=== PATIENT | female | born 1985 | race Caucasian/White ===

== ENCOUNTER → 2017-07-09 | Outpatient (REF) | payer OTHER | LOC: M SFHCWAGY 11:16 | PROVIDERS: ATTEND Nurse Practitioner Family | DX: Z12.4 Encounter for screening for malignant neoplasm of cervix (principal) ==

== ENCOUNTER → 2018-07-11 | Outpatient (REF) | payer OTHER ==
[2018-07-13 14:15] LABS: HPV HYBRID CAPTURE II Negative (Negative)
== END ==
LOC: M SFHCWAGY 10:09
DX: Z12.4 Encounter for screening for malignant neoplasm of cervix (principal)

== ENCOUNTER → 2018-11-09 | Outpatient (CLI) | payer OTHER | LOC: M RAD 13:18 | DX: N64.4 Mastodynia (principal); N61.0 Mastitis without abscess | CPT/HCPCS: 77066 ==

== ENCOUNTER 2020-01-18 14:19 | Emergency (ER) | payer OTHER ==
[~2020-01-18] VITALS: Ht 157.5 cm; Wt 55.6 kg
[2020-01-18] MEDS ORDERED: LEVOTAB18 (14:29)
[2020-01-18] MEDS ORDERED: CEPH500C (14:29)
[2020-01-18 16:51] LABS: BASO % 0.3 % (0.0-1.0); EOS % 0.2 % (0.0-3.0); HEMATOCRIT 42.4 % (36.0-47.0); HEMOGLOBIN 14.3 g/dl (12.0-15.5); LYMPH # 1.6 10^3/uL (1.5-5.0); MEAN CORPUSCULAR HEMOGLOBIN 31.6 pg (27.0-33.0); MEAN CORPUSCULAR HGB CONC 33.7 g/dl (32.0-36.5); MEAN CORPUSCULAR VOLUME 93.6 fl (80.0-96.0); MONO # 0.6 10^3/uL (0.0-0.8); MONO % 4.5 % (0.0-5.0); NEUTROPHILS # 10.8 10^3/uL (1.5-8.5); NEUTROPHILS % 82.7 % (36.0-66.0); PLATELET COUNT, AUTOMATED 228 10^3/uL (150-450); RED BLOOD COUNT 4.53 10^6/uL (4.00-5.40); WHITE BLOOD COUNT 13.1 10^3/uL (4.0-10.0)
[2020-01-18] MEDS: KETOROLAC 60 MG/2 ML VIAL (J1885) IM ONE (16:55)
[2020-01-18 17:19] LABS: ERYTHROCYTE SEDIMENTATION RATE 8 mm/hr (0-20)
[2020-01-18 17:21] LABS: BLOOD UREA NITROGEN 7 MG/DL (7-18); C REACTIVE PROTEIN QUANTITATIV 0.89 MG/DL (0.00-0.30); CARBON DIOXIDE LEVEL 24 MEQ/L (21-32); CHLORIDE LEVEL 112 MEQ/L (98-107); CREATININE FOR GFR 0.76 MG/DL (0.55-1.30); GLOMERULAR FILTRATION RATE > 60.0 (>60); GLUCOSE, FASTING 88 MG/DL (70-100); POTASSIUM SERUM 4.1 MEQ/L (3.5-5.1); SODIUM LEVEL 141 MEQ/L (136-145)
--- NOTE | 2020-01-18 18:01 | REPVR ---
PROCEDURE INFORMATION: Exam: US Left Breast Limited Exam date and time: 01/18/2020 5:30 PM Age: 34 years old Clinical indication: Mass, lump, or swelling; Left; Additional info: Red, swollen, tender area TECHNIQUE: Imaging protocol: Limited ultrasound of Left breast with image documentation, including axilla when performed. Exam focused on the search and evaluation for mass. COMPARISON: US BREAST U/S UNILATERAL LIMITED LEFT 11/09/2018 2:22 PM FINDINGS: Breast: Imaging in the area of erythema beneath the areola demonstrates the presence of a complex predominantly fluid filled mass with internal membranes measuring 2.7 x 3.5 x 1 cm. The lesion is hypervascular and its perimeter. Findings consistent with a retroareolar abscess. IMPRESSION: Findings most compatible with a retroareolar abscess although more aggressive pathology is not absolutely excluded. As such percutaneous aspiration for confirmation and treatment is suggested. Follow-up breast ultrasound/mammography also suggested as clinically directed. ASSESSMENT: BI-RADS 0. Electronically signed by: Patrick Davis On 01/18/2020 18:00:52 PM
[2020-01-18] MEDS: LIDOCAINE 1% MDV 20ML VIAL SC ONE (19:23)
[2020-01-18 19:49] VITALS: BP 138/81
--- NOTE | 2020-01-19 17:38 | CR ---
DATE OF CONSULTATION: 01/18/2020 REASON FOR CONSULTATION: Left breast abscess. HISTORY: The patient is a 34-year-old woman who presented to the emergency department complaining of a roughly 4-day history of left breast discomfort and swelling with evidence for a breast abscess. The patient had been seen at the [facility] several days ago and was started on antibiotics with Keflex. She has noticed increase in size of the swelling and increased tenderness without any drainage. She reports that she has had an abscess in this area three times before. Apparently, this has responded to antibiotics in the past. She had undergone an ultrasound in the emergency department, which confirmed an abscess, and I am now consulted. MEDICATIONS: Patient is not on any routine prescription medications and has been using Aleve for discomfort. She was started on the Keflex 500 mg four times daily and is taking control pills. ALLERGIES: AMOXICILLIN, which apparently caused diarrhea and stomach pains. MEDICAL HISTORY: Significant for supraventricular tachycardia as a teen. She is a smoker. Only surgical history has been lymph node removal from the right jaw line. FAMILY HISTORY: Noncontributory to her current problem. REVIEW OF SYSTEMS: Shows that she has had a fever. She has not had any other upper respiratory infection (URI) or urinary tract infection (UTI) symptoms. PHYSICAL EXAMINATION: Shows a thin woman who appears somewhat anxious. The left breast shows a large, raised, fluctuant area along the medial aspect of the edge of the areola. The fluctuant area and appears to be quite superficial and perhaps 3-3.5 cm in maximal diameter. The area is reddened and quite tender. IMPRESSION: Left breast abscess, not responding to oral antibiotics. PLAN: The patient was counseled for incision and drainage of the abscess. We will obtain a culture so that we can assess for methicillin-resistant Staphylococcus aureus (MRSA). I would not change her antibiotics at this time and think that once the abscess is drained that the Keflex is likely to be adequate antibiotic therapy. She was counseled regarding care of her wound after the incision and drainage. She apparently has an appointment at the [facility] again tomorrow, and I advised her that she can followup with them.
--- NOTE | 2020-01-19 18:51 | RO ---
DATE OF PROCEDURE: 01/18/2020 PREPROCEDURE DIAGNOSIS: Left breast abscess. POSTOPERATIVE DIAGNOSIS Left breast abscess. PROCEDURE PERFORMED: Incision and drainage of left breast abscess. SURGEON; Dr. Shady Hudson [employer]: ANESTHESIA: Local of 1% Xylocaine. INDICATIONS FOR PROCEDURE: The patient is a 34-year-old woman who presented to the emergency department with a 4-day history of a developing abscess in the medial breast around the edge of the areola. She is now for incision and drainage of this abscess. DESCRIPTION OF PROCEDURE: The area was prepped with Betadine and draped with gauze pads. Local anesthesia was achieved with 1% lidocaine along the edge of the areola overlying the fluctuant abscess. An 11 blade was used to make an approximately 1 cm incision. A large amount of thick yellow-green pus was released, and the drainage was encouraged by gentle pressure. A Culturette was obtained for Gram stain and cultures. The wound was wicked with a 2 x 2 moistened with some Betadine and a bulky bandage was applied. The patient tolerated the procedure well.
== END 2020-01-18 20:02 | disposition home or self-care (01) ==
LOC: M ED 14:19
DX: N61.1 Abscess of the breast and nipple (principal); F17.200 Nicotine dependence, unspecified, uncomplicated; Z88.0 Allergy status to penicillin; Z79.2 Long term (current) use of antibiotics; Z79.3 Long term (current) use of hormonal contraceptives
CPT/HCPCS: 10060; 36415; 76642; 80048; 84702; 85025; 85652; 86140; 87070; 87205; 96372; 99283; J1885

== ENCOUNTER → 2020-08-17 | Outpatient (CLI) | payer OTHER ==
[~2020-08-17] MED LIST: CEPH500C; LEVOTAB18
[2020-08-17 13:52] LABS: BASO % 0.3 % (0.0-1.0); EOS # 0.1 10^3/uL (0.0-0.5); EOS % 1.4 % (0.0-3.0); HEMATOCRIT 46.8 % (36.0-47.0); HEMOGLOBIN 14.9 g/dl (12.0-15.5); LYMPH # 1.8 10^3/uL (1.5-5.0); LYMPH % 20.6 % (24.0-44.0); MEAN CORPUSCULAR HGB CONC 31.8 g/dl (32.0-36.5); MEAN CORPUSCULAR VOLUME 97.5 fl (80.0-96.0); MONO # 0.6 10^3/uL (0.0-0.8); MONO % 6.3 % (0.0-5.0); NEUTROPHILS # 6.2 10^3/uL (1.5-8.5); NEUTROPHILS % 71.1 % (36.0-66.0); PLATELET COUNT, AUTOMATED 253 10^3/uL (150-450); WHITE BLOOD COUNT 8.7 10^3/uL (4.0-10.0)
[2020-08-17 14:01] LABS: ALBUMIN 4.1 GM/DL (3.2-5.2); ALT/SGPT 22 U/L (12-78); BILIRUBIN,TOTAL 0.7 MG/DL (0.2-1.0); BLOOD UREA NITROGEN 15 MG/DL (7-18); CALCIUM LEVEL 8.9 MG/DL (8.5-10.1); CARBON DIOXIDE LEVEL 24 MEQ/L (21-32); CHLORIDE LEVEL 109 MEQ/L (98-107); CHOLESTEROL LEVEL 206 MG/DL (<200); CHOLESTEROL RISK RATIO 5.722 (<5); CREATININE FOR GFR 0.84 MG/DL (0.55-1.30); GLOMERULAR FILTRATION RATE > 60.0 (>60); GLUCOSE, FASTING 93 MG/DL (70-100); HDL CHOLESTEROL 36 MG/DL (>40); LDL CHOLESTEROL 152 MG/DL (<100); NON-HDL-C 170 MG/DL; POTASSIUM SERUM 4.3 MEQ/L (3.5-5.1); RHEUMATOID FACTOR QUANT < 10.0 IU/ML (<15.0); SODIUM LEVEL 138 MEQ/L (136-145); THYROID STIMULATING HORMONE 0.648 uIU/ML (0.358-3.740); TOTAL PROTEIN 7.3 GM/DL (6.4-8.2); TRIGLYCERIDES LEVEL 90 MG/DL (<150)
[2020-08-17 15:09] LABS: HEMOGLOBIN A1c 5.4 %
[2020-08-20 10:20] LABS: DRVV SCREEN 36.5 SEC
[2020-08-20 10:37] LABS: PTT LUPUS TYPE ANTICOAG SCREEN 0.9 (0-1.2)
[2020-08-20 15:07] LABS: ANTINUCLEAR ANTIBODIES DIRECT Negative (Negative)
--- NOTE | 2020-08-29 11:43 | REP ---
BILATERAL HAND SERIES: 8-VIEWS HISTORY: Hand pain. FINDINGS: Four views of the right and four views of the left hand are presented. Overall mineralization pattern is normal. There is mild osteoarthritic spurring at the DIP joint of the index finger on the right. Bones, joints, and soft tissues are otherwise unremarkable. IMPRESSION: Minimal degenerative change at the right index distal interphalangeal (DIP). Otherwise, negative right hand and left hand radiographs. MTDD
== END ==
LOC: M WUC 08:06
PROVIDERS: ATTEND Physician Assistant Medical
DX: Z00.00 Encounter for general adult medical examination without abnormal findings (principal); L40.0 Psoriasis vulgaris; R60.9 Edema, unspecified; Z79.899 Other long term (current) drug therapy; Z82.61 Family history of arthritis; Z83.49 Family history of other endocrine, nutritional and metabolic diseases; Z83.3 Family history of diabetes mellitus; M79.642 Pain in left hand; M79.641 Pain in right hand

== ENCOUNTER → 2021-09-22 | Outpatient (REF) | payer OTHER | LOC: M SFHCWAGY 19:28 | PROVIDERS: ATTEND Advanced Practice Midwife | DX: Z12.4 Encounter for screening for malignant neoplasm of cervix (principal) ==

== ENCOUNTER → 2021-12-25 | Outpatient (CLI) | payer OTHER ==
[2021-12-25 10:23] LABS: BASO % 0.4 % (0.0-1.0); EOS # 0.1 10^3/uL (0.0-0.5); EOS % 1.6 % (0.0-3.0); HEMOGLOBIN 14.7 g/dl (12.0-15.5); LYMPH # 1.9 10^3/uL (1.5-5.0); LYMPH % 24.3 % (24.0-44.0); MEAN CORPUSCULAR HEMOGLOBIN 30.8 pg (27.0-33.0); MEAN CORPUSCULAR HGB CONC 32.7 g/dl (32.0-36.5); MEAN CORPUSCULAR VOLUME 94.3 fl (80.0-96.0); MONO # 0.5 10^3/uL (0.0-0.8); MONO % 6.3 % (2.0-8.0); NEUTROPHILS # 5.3 10^3/uL (1.5-8.5); NEUTROPHILS % 66.9 % (36.0-66.0); PLATELET COUNT, AUTOMATED 330 10^3/uL (150-450); RED BLOOD COUNT 4.77 10^6/uL (4.00-5.40); WHITE BLOOD COUNT 7.9 10^3/uL (4.0-10.0)
[2021-12-25 11:06] LABS: ALBUMIN 4.1 GM/DL (3.2-5.2); ALT/SGPT 20 U/L (12-78); BILIRUBIN,TOTAL 0.7 MG/DL (0.2-1.0); BLOOD UREA NITROGEN 10 MG/DL (7-18); CALCIUM LEVEL 9.1 MG/DL (8.5-10.1); CARBON DIOXIDE LEVEL 29 MEQ/L (21-32); CHLORIDE LEVEL 106 MEQ/L (98-107); CHOLESTEROL LEVEL 201 MG/DL (<200); CHOLESTEROL RISK RATIO 5.432 (<5); CREATININE FOR GFR 0.78 MG/DL (0.55-1.30); GLOMERULAR FILTRATION RATE > 60.0 (>60); GLUCOSE, FASTING 97 MG/DL (70-100); HDL CHOLESTEROL 37 MG/DL (>40); LDL CHOLESTEROL 146 MG/DL (<100); NON-HDL-C 164 MG/DL; SODIUM LEVEL 137 MEQ/L (136-145); TOTAL PROTEIN 7.5 GM/DL (6.4-8.2); TRIGLYCERIDES LEVEL 91 MG/DL (<150)
[2021-12-25 11:11] LABS: HEMOGLOBIN A1c 5.4 %
== END ==
LOC: M WUC 08:01
PROVIDERS: ATTEND Nurse Practitioner Family
DX: E78.00 Pure hypercholesterolemia, unspecified (principal); Z79.1 Long term (current) use of non-steroidal anti-inflammatories (NSAID); Z79.899 Other long term (current) drug therapy; Z83.49 Family history of other endocrine, nutritional and metabolic diseases

== ENCOUNTER → 2022-04-23 | Outpatient (CLI) | payer OTHER | LOC: M PLAIMG 12:06 | PROVIDERS: ATTEND Nurse Practitioner Family | DX: M51.26 Other intervertebral disc displacement, lumbar region (principal) ==

== ENCOUNTER → 2022-12-15 | Outpatient (CLI) | payer OTHER ==
[2022-12-15 10:20] LABS: RHEUMATOID FACTOR QUANT < 3.5 IU/ML (<14)
[2022-12-16 21:07] LABS: ANA (HEP2) Negative (.); CYCLIC CITRULLINATED PEPTIDE < 1 units (0-19)
== END ==
LOC: M WUC 08:03
PROVIDERS: ATTEND Nurse Practitioner Family
DX: M25.50 Pain in unspecified joint (principal)

== ENCOUNTER → 2023-06-07 | Outpatient (CLI) | payer OTHER ==
[2023-06-07 11:28] LABS: BASO # 0.1 10^3/uL (0.0-0.2); BASO % 0.6 % (0.0-1.0); EOS % 0.3 % (0.0-3.0); HEMATOCRIT 47.2 % (36.0-47.0); HEMOGLOBIN 15.8 g/dl (12.0-15.5); LYMPH # 1.3 10^3/uL (1.5-5.0); LYMPH % 14.7 % (24.0-44.0); MEAN CORPUSCULAR HEMOGLOBIN 31.7 pg (27.0-33.0); MEAN CORPUSCULAR HGB CONC 33.5 g/dl (32.0-36.5); MEAN CORPUSCULAR VOLUME 94.6 fl (80.0-96.0); MONO # 0.5 10^3/uL (0.0-0.8); MONO % 5.1 % (2.0-8.0); NEUTROPHILS # 6.9 10^3/uL (1.5-8.5); PLATELET COUNT, AUTOMATED 204 10^3/uL (150-450); RED BLOOD COUNT 4.99 10^6/uL (4.00-5.40); WHITE BLOOD COUNT 8.8 10^3/uL (4.0-10.0)
[2023-06-07 11:29] LABS: ALKALINE PHOSPHATASE 54 U/L (46-116); ALT/SGPT < 9 U/L (7.0-40); AST/SGOT < 8 U/L (<34); BILIRUBIN,TOTAL 0.8 MG/DL (0.3-1.2); BLOOD UREA NITROGEN 8 MG/DL (9-23); CALCIUM LEVEL 8.9 MG/DL (8.5-10.1); CARBON DIOXIDE LEVEL 25 MMOL/L (20-31); CHLORIDE LEVEL 109 MMOL/L (98-107); CHOLESTEROL LEVEL 190 MG/DL (<200); CHOLESTEROL RISK RATIO 4.96 (<5); CREATININE FOR GFR 0.83 MG/DL (0.55-1.30); GLOMERULAR FILTRATION RATE > 60.0 (>60); GLUCOSE, FASTING 99 MG/DL (60-100); HDL CHOLESTEROL 38.3 MG/DL (>40); LDL CHOLESTEROL 134.9 MG/DL (<100); NON-HDL-C 151.7 MG/DL; POTASSIUM SERUM 4.3 MMOL/L (3.5-5.1); SODIUM LEVEL 142 MMOL/L (136-145); TOTAL PROTEIN 6.8 G/DL (5.7-8.2); TRIGLYCERIDES LEVEL 84 MG/DL (<150)
[2023-06-07 11:30] LABS: THYROID STIMULATING HORMONE 0.467 uIU/ML (0.55-4.78); TOTAL 25(OH) VITAMIN D 34.2 NG/ML (20.0-100.0)
[2023-06-07 11:43] LABS: HEMOGLOBIN A1c 5.2 % (4.0-6.0)
== END ==
LOC: M WUC 08:09
PROVIDERS: ATTEND Nurse Practitioner Family
DX: Z00.00 Encounter for general adult medical examination without abnormal findings (principal); E78.00 Pure hypercholesterolemia, unspecified; M54.50 Low back pain, unspecified

== ENCOUNTER → 2023-09-23 | Outpatient (REF) | payer OTHER | LOC: M SFHCDERM 17:42 | PROVIDERS: ATTEND Nurse Practitioner Family | DX: L82.1 Other seborrheic keratosis (principal) ==

== ENCOUNTER → 2023-12-20 | Outpatient (REF) | payer OTHER ==
[2023-12-20 17:44] LABS: ALBUMIN 4.1 G/DL (3.2-5.2); ALKALINE PHOSPHATASE 63 U/L (46-116); ALT/SGPT 13 U/L (7.0-40); AST/SGOT 10 U/L (<34); BILIRUBIN,TOTAL 0.6 MG/DL (0.3-1.2); BLOOD UREA NITROGEN 6 MG/DL (9-23); CALCIUM LEVEL 9.3 MG/DL (8.5-10.1); CARBON DIOXIDE LEVEL 27 MMOL/L (20-31); CHLORIDE LEVEL 107 MMOL/L (98-107); CREATININE FOR GFR 0.69 MG/DL (0.55-1.30); GLOMERULAR FILTRATION RATE > 60.0 (>60); GLUCOSE, FASTING 103 MG/DL (60-100); POTASSIUM SERUM 3.8 MMOL/L (3.5-5.1); SODIUM LEVEL 138 MMOL/L (136-145); TOTAL PROTEIN 7.4 G/DL (5.7-8.2)
[2023-12-20 17:46] LABS: FREE THYROXINE INDEX 4.6 % (1.3-4.8); THYROID STIMULATING HORMONE 2.252 uIU/ML (0.55-4.78); THYROXINE (T4) 12.3 UG/DL (4.5-10.9)
[2023-12-20 17:47] LABS: THYROID PEROXIDASE ANTIBODY 44 U/ML (<60.0)
== END ==
LOC: M LABDRWAD 16:19 → M LABWUC 16:19
PROVIDERS: ATTEND Registered Nurse
DX: R63.4 Abnormal weight loss (principal); E07.89 Other specified disorders of thyroid

== ENCOUNTER → 2024-06-26 | Outpatient (CLI) | payer OTHER | LOC: M WUC 08:23 | PROVIDERS: ATTEND Registered Nurse | DX: M25.561 Pain in right knee (principal) ==

== ENCOUNTER → 2024-07-10 | Outpatient (REF) | payer OTHER | LOC: M SFHCWAGY 18:00 | PROVIDERS: ATTEND Advanced Practice Midwife | DX: Z12.4 Encounter for screening for malignant neoplasm of cervix (principal) ==

== ENCOUNTER → 2025-01-22 | Outpatient (CLI) | payer OTHER | LOC: M WUC 08:14 | PROVIDERS: ATTEND Registered Nurse | DX: R53.83 Other fatigue (principal); R76.0 Raised antibody titer ==

== ENCOUNTER → 2025-03-19 | Outpatient (CLI) | payer OTHER ==
[2025-03-19 14:41] LABS: BASO % 0.4 % (0.0-1.0); EOS # 0.1 10^3/uL (0.0-0.5); EOS % 1.3 % (0.0-3.0); HEMATOCRIT 45.6 % (36.0-47.0); HEMOGLOBIN 14.8 g/dl (12.0-15.5); LYMPH # 1.6 10^3/uL (1.5-5.0); LYMPH % 22.7 % (24.0-44.0); MEAN CORPUSCULAR HEMOGLOBIN 31.5 pg (27.0-33.0); MEAN CORPUSCULAR HGB CONC 32.5 g/dl (32.0-36.5); MONO # 0.5 10^3/uL (0.0-0.8); MONO % 6.9 % (2.0-8.0); NEUTROPHILS # 4.7 10^3/uL (1.5-8.5); NEUTROPHILS % 68.3 % (36.0-66.0); PLATELET COUNT, AUTOMATED 228 10^3/uL (150-450); WHITE BLOOD COUNT 6.9 10^3/uL (4.0-10.0)
[2025-03-19 14:45] LABS: ERYTHROCYTE SEDIMENTATION RATE 17 mm/hr (0-20)
[2025-03-19 15:06] LABS: URIC ACID 2.9 MG/DL (3.1-7.8)
[2025-03-19 15:09] LABS: ALKALINE PHOSPHATASE 64 U/L (35-104); ALT/SGPT 12 U/L (7.0-40); AST/SGOT 11 U/L (<34); BILIRUBIN,TOTAL 0.7 MG/DL (0.3-1.2); BLOOD UREA NITROGEN 7 MG/DL (9-23); CALCIUM LEVEL 9.1 MG/DL (8.5-10.1); CARBON DIOXIDE LEVEL 26 MMOL/L (20-31); CHLORIDE LEVEL 109 MMOL/L (98-107); CREATININE FOR GFR 0.77 MG/DL (0.55-1.30); GLOMERULAR FILTRATION RATE > 90.0 (>60); GLUCOSE, FASTING 116 MG/DL (60-100); POTASSIUM SERUM 3.9 MMOL/L (3.5-5.1); SODIUM LEVEL 141 MMOL/L (136-145); TOTAL PROTEIN 6.9 G/DL (5.7-8.2)
[2025-03-19 15:10] LABS: C REACTIVE PROTEIN QUANTITATIV 0.79 MG/DL (<1.0)
[2025-03-19 15:11] LABS: RHEUMATOID FACTOR QUANT < 3.5 IU/ML (<14)
[2025-03-20 11:11] LABS: SSA SJOGRENS A <1.0 NEG AI (<1.0 NEG); SSB SJOGRENS B <1.0 NEG AI (<1.0 NEG)
[2025-03-21 15:23] LABS: ANA SCREEN, IFA NEGATIVE (NEGATIVE)
== END ==
LOC: M WUC 08:06
PROVIDERS: ATTEND Registered Nurse
DX: M13.0 Polyarthritis, unspecified (principal)